=== PATIENT | female | born 2000 | race African-American/Black ===

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

== ENCOUNTER 2021-03-16 15:14 | Emergency (ER) | payer SELFPAY | END 2021-03-16 15:45 | disposition home or self-care (01) | LOC: ERS 15:14 | DX: M54.41 Lumbago with sciatica, right side (principal) | CPT/HCPCS: 99283 ==